=== PATIENT | male | born 1935 | race Two or more races ===

== ENCOUNTER 2022-02-16 09:22 | Emergency (ER) | payer OTHER ==
[~2022-02-16] VITALS: Ht 167.6 cm; Wt 73.6 kg
[2022-02-16 10:25] VITALS: BP 156/77
[2022-02-16] MEDS ORDERED: CEPH-510 PO (10:49)
[2022-02-16] MEDS ORDERED: TETANUS-DIPTH-ACEL PERTUSSIS 0.5ML SYR Tdap IM ONE (11:00)
[2022-02-17] MEDS ORDERED: DICL50TA2 PO (15:23)
[2022-02-17] MEDS ORDERED: CEFD300C2 PO (15:23)
== END 2022-02-16 11:06 | disposition home or self-care (01) ==
LOC: ER 09:22
DX: S41.112A Laceration without foreign body of left upper arm, initial encounter (principal); S51.802A Unspecified open wound of left forearm, initial encounter; Z79.899 Other long term (current) drug therapy; W18.39XA Other fall on same level, initial encounter; Y93.89 Activity, other specified; Y92.89 Other specified places as the place of occurrence of the external cause; Y99.8 Other external cause status
CPT/HCPCS: 12002; 90471; 90715; 99283; J2001

== ENCOUNTER 2022-02-17 13:16 | Emergency (ER) | payer OTHER ==
[~2022-02-17] VITALS: Ht 172.7 cm; Wt 73.0 kg
[~2022-02-17 13:16] MED LIST: CEPH-510 PO
[2022-02-17 13:45] VITALS: BP 127/65
[2022-02-17] MEDS ORDERED: CLINDAMYCIN 900MG IV 50 ML IV ONE (13:45)
[2022-02-17] MEDS ORDERED: NEOMYCIN-BACITRACIN-POLYM UNITDOSE PKG TOP OINT TOP ONE (13:45)
[2022-02-17] MEDS ORDERED: TETANUS-DIPTH-ACEL PERTUSSIS 0.5ML SYR Tdap IM ONE (13:45)
[2022-02-17 14:18] LABS: Basophils # (auto) 0 10 ^3/uL (0-0.2); Basophils % (auto) 0.6 % (0.0-2.0); Eosinophils # (auto) 0.3 10 ^3/uL (0-0.8); Eosinophils % (auto) 4.6 % (0.0-7.0); Hematocrit 41.3 % (41.0-53.0); Hemoglobin 13.8 g/dL (13.5-17.5); Lymphocytes # (auto) 1.6 10 ^3/uL (0.4-5.4); Lymphocytes % (auto) 21.8 % (10.0-50.0); Mean Corpuscular Hemoglobin 30.9 pg (28.0-32.0); Mean Corpuscular Hgb Conc. 33.3 g/dL (32.0-36.0); Mean Corpuscular Volume 92.9 fL (80.0-100.0); Monocytes # (auto) 0.7 10 ^3/uL (0-1.3); Monocytes % (auto) 9.1 % (0.0-12.0); Neutrophils # (auto) 4.7 10 ^3/uL (1.6-8.6); Neutrophils % (auto) 63.9 % (37.0-80.0); Nucleated Red Blood Cells % 0.1 %; Red Blood Cells 4.45 10^6/uL (4.5-5.90); Red Cell Distribution Width 14.3 % (11.8-14.3); White Blood Cell 7.3 10^3/uL (4.4-10.8)
[2022-02-17 14:56] LABS: Calcium 9.3 mg/dL (8.5-10.1); Potassium 4.5 mmol/L (3.5-5.1)
[2022-02-17] MEDS ORDERED: CEFD300C2 PO (15:23)
[2022-02-17] MEDS ORDERED: DICL50TA2 PO (15:23)
== END 2022-02-17 16:38 | disposition home or self-care (01) ==
LOC: ER 13:16
DX: S51.802D Unspecified open wound of left forearm, subsequent encounter (principal); L03.114 Cellulitis of left upper limb; Z79.899 Other long term (current) drug therapy; W19.XXXD Unspecified fall, subsequent encounter
CPT/HCPCS: 36415; 80048; 85025; 90471; 90715; 96365; 99284; J3490

== ENCOUNTER 2022-02-18 11:03 | Emergency (ER) | payer OTHER ==
[~2022-02-18] VITALS: Ht 172.7 cm; Wt 70.4 kg
[~2022-02-18 11:03] MED LIST changes: +CEFD300C2 PO; +DICL50TA2 PO
[2022-02-18 12:47] VITALS: BP 133/75
== END 2022-02-18 13:51 | disposition home or self-care (01) ==
LOC: ER 11:03
DX: S40.812D Abrasion of left upper arm, subsequent encounter (principal); L03.114 Cellulitis of left upper limb; M19.90 Unspecified osteoarthritis, unspecified site; I10 Essential (primary) hypertension; X58.XXXD Exposure to other specified factors, subsequent encounter
CPT/HCPCS: 73090

== ENCOUNTER 2023-12-13 12:37 | Emergency (ER) | payer OTHER ==
[~2023-12-13] VITALS: Ht 172.7 cm; Wt 66.4 kg
[2023-12-13 13:39] VITALS: BP 123/63; PULSE 95; RESP 20; TEMP 98.7; O2SAT 96
[2023-12-13] MEDS: LIDOCAINE 1% HCL (LOCAL ANESTH.) INJ 20ML MDV IJ ONE (13:53)
[2023-12-13] MEDS ORDERED: ACET-1080 PO (15:12)
[2023-12-13] MEDS ORDERED: CEPH500C PO (15:12)
== END 2023-12-13 15:18 | disposition home or self-care (01) ==
LOC: ER 12:37
DX: S01.111A Laceration without foreign body of right eyelid and periocular area, initial encounter (principal); W18.09XA Striking against other object with subsequent fall, initial encounter; Y93.01 Activity, walking, marching and hiking; Y92.89 Other specified places as the place of occurrence of the external cause; Y99.8 Other external cause status; I10 Essential (primary) hypertension
CPT/HCPCS: 12015; 70450; 70486

== ENCOUNTER 2023-12-23 08:49 | Emergency (ER) | payer OTHER ==
[~2023-12-23] VITALS: Ht 172.7 cm; Wt 66.0 kg
[~2023-12-23 08:49] MED LIST changes: +ACET-1080 PO; +CEPH500C PO
[2023-12-23 09:26] VITALS: BP 137/68; PULSE 77; RESP 16; TEMP 98.3; O2SAT 97
== END 2023-12-23 10:09 | disposition home or self-care (01) ==
LOC: ER 08:49
DX: S01.111D Laceration without foreign body of right eyelid and periocular area, subsequent encounter (principal); Z48.00 Encounter for change or removal of nonsurgical wound dressing; M19.90 Unspecified osteoarthritis, unspecified site; I10 Essential (primary) hypertension; Z79.899 Other long term (current) drug therapy; X58.XXXD Exposure to other specified factors, subsequent encounter